=== PATIENT | female | born 1945 | race Caucasian/White ===

== ENCOUNTER 2016-08-06 11:18 | Observation (INO) | payer MEDICARE, OTHER ==
[2016-08-06] MEDS ORDERED: Ketorolac INJ* 30 MG/ML 1 ML VIAL IV ONE (13:58)
--- NOTE | 2016-08-06 14:29 | RAD ---
HISTORY: Left chest, shoulder, and back pain COMPARISONS: July 29, 2013 VIEWS: 2: Frontal dual-energy and lateral views of the chest. FINDINGS: CARDIOMEDIASTINAL SILHOUETTE: The cardiomediastinal silhouette is normal. MARY: The mary are normal. PLEURA: The costophrenic angles are sharp. No pleural abnormalities are noted. LUNG PARENCHYMA: The lungs are clear. ABDOMEN: The upper abdomen is clear. There is no subphrenic gas. BONES AND SOFT TISSUES: No bone or soft tissue abnormalities are noted. OTHER: None. IMPRESSION: NO ACTIVE CARDIOPULMONARY DISEASE.
[2016-08-06 14:48] LABS: Hematocrit 41 % (35-47); Hemoglobin 14.4 g/dl (12.0-16.0); Mean Corpuscular HGB Conc 35 g/dl (31-36); Mean Corpuscular Hemoglobin 31 pg (27-31); Mean Corpuscular Volume 90 fL (80-97); Mean Platelet Volume 9 um3 (7.4-10.4); Red Cell Distribution Width 14 % (10.5-15); White Blood Count 10.1 10^3/ul (3.5-10.8)
[2016-08-06 15:07] LABS: Albumin 4.2 g/dL (3.2-5.2); BUN/Creatinine Ratio 16.9 (8-20); Calcium 9.7 mg/dL (8.6-10.3); EGFR African American 87.9 (>60); EGFR Non-African American 68.4 (>60); Globulin 2.8 g/dL (2-4); Total Bilirubin 0.5 mg/dL (0.2-1.0)
[2016-08-06 15:09] LABS: Potassium 3.7 mmol/L (3.5-5.0); Troponin I 0.02 ng/mL (<0.04)
[2016-08-06] MEDS ORDERED: Ondansetron INJ* 2 MG/ML VIAL IV PRN (15:35)
[2016-08-06] MEDS ORDERED: Zolpidem TAB* 5 MG PO PRN (15:45)
[2016-08-06] MEDS ORDERED: Enoxaparin(*) 40 MG/0.4 ML SYR SUBCUT SCH (16:00)
[2016-08-06] MEDS: Acetaminophen TAB* 325 MG PO PRN ×2 (17:54→23:39)
[2016-08-06] MEDS: amLODIPine TAB* 5 MG PO SCH (17:54)
--- NOTE | 2016-08-06 22:30 | ED ---
Slim Brush Janilya, scribed for Tariq Camejo MD on 08/06/16 at 1431 . HPI Chest Pain - HPI Summary HPI Summary: A 70 y/o [place] [facility] [place] w/ a gradual onset of constant back pain for a few days. Pt states that the pain starts as back pain but slowly migrates to the left arm and intermittently moves to the chest. The back pain is described as pinching pain. The arm pain as achy pain. And the chest pain as jabbing pain. Nothing made the pain better or worse. At this time, the pain is concentrated in the back. When she first came in to the ED, the pain was also in the arm, however, by now it has subsided. Pt also reports mild nausea. Pt denies SOB, diaphoresis. Pt takes diuretic for HTN and sleep meds. PMHx heart murmur. - History of Current Complaint Chief Complaint: EDChestPainROMI Time Seen by Provider: 08/06/16 13:37 Hx Obtained From: Patient Onset/Duration: Started Days Ago, Atraumatic, Still Present Timing: Intermittent Initial Severity: Moderate Current Severity: Moderate Pain Intensity: 5 Pain Scale Used: 0-10 Numeric Chest Pain Radiates: Yes Chest Pain Radiates To:: Back, Arm Character: Other: - jabbing CP Aggravating Factor(s): Nothing Alleviating Factor(s): Nothing Associated Signs and Symptoms: Positive: Chest Pain, Nausea, Back Pain. Negative: Shortness of Breath - Allergy/Home Medications Allergies/Adverse Reactions: Allergies Allergy/AdvReac Type Severity Reaction Status Date / Time No Known Allergies Allergy Verified 08/02/15 11:19 PMH/Surg Hx/FS Hx/Imm Hx Previously Healthy: Yes Cardiovascular History: Reports: Hx Hypertension, Other Cardiovascular Problems/ Disorders - MURMUR Neurological History: Denies: Hx Dementia - Cancer History Hx Chemotherapy: No Hx Radiation Therapy: No - Immunization History Date of Tetanus Vaccine: unknown Date of Influenza Vaccine: no Infectious Disease History: No Infectious Disease History: Denies: Traveled Outside the [place] in Last 30 Days - Family History Known Family History: Positive: Other - alcoholism and cancer Negative: Cardiac Disease - Social History Occupation: Retired Alcohol Use: Daily Alcohol Amount: 6-7 glasses of wine per week Substance Use Type: Reports: None Smoking Status (MU): Former Smoker Review of Systems Negative: Skin Diaphoresis Positive: Chest Pain Negative: Shortness Of Breath Positive: Nausea Positive: Arthralgia - arm and back pain, Myalgia - arm and back pain All Other Systems Reviewed And Are Negative: Yes Physical Exam Triage Information Reviewed: Yes Vital Signs On Initial Exam: Initial Vitals Temp Pulse Resp BP Pulse Ox 98.1 F 95 16 180/80 100 08/06/16 11:25 08/06/16 11:25 08/06/16 11:25 08/06/16 11:25 08/06/16 11:25 Vital Signs Reviewed: Yes Appearance: Positive: Well-Appearing, No Pain Distress Skin: Positive: Warm, Skin Color Reflects Adequate Perfusion, Dry Head/Face: Positive: Normal Head/Face Inspection Eyes: Positive: Normal ENT: Positive: Normal ENT inspection Neck: Positive: Supple, Nontender Respiratory/Lung Sounds: Positive: Clear to Auscultation, Breath Sounds Present Cardiovascular: Positive: RRR Abdomen Description: Positive: Nontender, Soft Bowel Sounds: Positive: Present Musculoskeletal: Positive: Other - Mild to moderate mid-sternal tenderness Neurological: Positive: Normal Psychiatric: Positive: Affect/Mood Appropriate - [place] Coma Scale Coma Scale Total: 15 Diagnostics - Vital Signs Vital Signs Temp Pulse Resp BP Pulse Ox 08/06/16 13:27 98 F 77 16 193/87 99 08/06/16 12:49 98.0 F 81 15 172/79 100 08/06/16 11:25 98.1 F 95 16 180/80 100 - Laboratory Lab Results: Lab Results 08/06/16 08/06/16 08/06/16 Range/Units 14:30 14:30 14:30 WBC 10.1 (3.5-10.8) 10^3/ul RBC 4.60 (4.0-5.4) 10^6/ul Hgb 14.4 (12.0-16.0) g/dl Hct 41 (35-47) % MCV 90 (80-97) fL MCH 31 (27-31) pg MCHC 35 (31-36) g/dl RDW 14 (10.5-15) % Plt Count 279 (150-450) 10^3/ul MPV 9 (7.4-10.4) um3 Neut % (Auto) 77.2 (38-83) % Lymph % (Auto) 15.3 L (25-47) % [place] % (Auto) 3.8 (1-9) % Eos % (Auto) 2.3 (0-6) % Baso % (Auto) 1.4 (0-2) % Absolute Neuts (auto) 7.8 H (1.5-7.7) 10^3/ul Absolute Lymphs (auto) 1.5 (1.0-4.8) 10^3/ul Absolute Monos (auto) 0.4 (0-0.8) 10^3/ul Absolute Eos (auto) 0.2 (0-0.6) 10^3/ul Absolute Basos (auto) 0.1 (0-0.2) 10^3/ul Absolute Nucleated RBC 0 10^3/ul Nucleated RBC % 0 D-Dimer, Quantitative < 200 (Less Than 230) ng/mL Sodium 136 (133-145) mmol/L Potassium 3.7 (3.5-5.0) mmol/L Chloride 104 (101-111) mmol/L Carbon Dioxide 22 (22-32) mmol/L Anion Gap 10 (2-11) mmol/L BUN 14 (6-24) mg/dL Creatinine 0.83 (0.51-0.95) mg/dL Est GFR ( Amer) 87.9 (>60) Est GFR (Non-Af Amer) 68.4 (>60) BUN/Creatinine Ratio 16.9 (8-20) Glucose 105 H (70-100) mg/dL Lactic Acid (0.5-2.0) mmol/L Calcium 9.7 (8.6-10.3) mg/dL Total Bilirubin 0.50 (0.2-1.0) mg/dL AST 20 (13-39) U/L ALT 12 (7-52) U/L Alkaline Phosphatase 49 (34-104) U/L Troponin I 0.02 (<0.04) ng/mL Total Protein 7.0 (6.4-8.9) g/dL Albumin 4.2 (3.2-5.2) g/dL Globulin 2.8 (2-4) g/dL Albumin/Globulin Ratio 1.5 (1-3) // Range/Units 14:30 WBC (3.5-10.8) 10^3/ul RBC (4.0-5.4) 10^6/ul Hgb (12.0-16.0) g/dl Hct (35-47) % MCV (80-97) fL MCH (27-31) pg MCHC (31-36) g/dl RDW (10.5-15) % Plt Count (150-450) 10^3/ul MPV (7.4-10.4) um3 Neut % (Auto) (38-83) % Lymph % (Auto) (25-47) % [place] % (Auto) (1-9) % Eos % (Auto) (0-6) % Baso % (Auto) (0-2) % Absolute Neuts (auto) (1.5-7.7) 10^3/ul Absolute Lymphs (auto) (1.0-4.8) 10^3/ul Absolute Monos (auto) (0-0.8) 10^3/ul Absolute Eos (auto) (0-0.6) 10^3/ul Absolute Basos (auto) (0-0.2) 10^3/ul Absolute Nucleated RBC 10^3/ul Nucleated RBC % D-Dimer, Quantitative (Less Than 230) ng/mL Sodium (133-145) mmol/L Potassium (3.5-5.0) mmol/L Chloride (101-111) mmol/L Carbon Dioxide (22-32) mmol/L Anion Gap (2-11) mmol/L BUN (6-24) mg/dL Creatinine (0.51-0.95) mg/dL Est GFR ( Amer) (>60) Est GFR (Non-Af Amer) (>60) BUN/Creatinine Ratio (8-20) Glucose (70-100) mg/dL Lactic Acid 2.0 (0.5-2.0) mmol/L Calcium (8.6-10.3) mg/dL Total Bilirubin (0.2-1.0) mg/dL AST (13-39) U/L ALT (7-52) U/L Alkaline Phosphatase (34-104) U/L Troponin I (<0.04) ng/mL Total Protein (6.4-8.9) g/dL Albumin (3.2-5.2) g/dL Globulin (2-4) g/dL Albumin/Globulin Ratio (1-3) Result Diagrams: 08/06/16 14:30 08/06/16 14:30 Lab Statement: Any lab studies that have been ordered have been reviewed, and results considered in the medical decision making process. - Radiology CXR Xray Interpretation: No Acute Changes - IMPRESSION: No active cardiopulmonary disease Radiology Interpretation Completed By: Radiologist - EKG 1323 Cardiac Rate: NL - 78 bpm EKG Rhythm: Sinus Rhythm ST Segment: Non-Specific Chest Pain Course/Dx - Diagnoses Provider Diagnoses: Chest pain - Provider Notifications Discussed Care Of Patient With: Dr. George (hospitalist) at 1520: agrees to admit pt upon evaluation. Discharge - Discharge Plan Condition: Stable Disposition: ADMITTED TO [facility] documentation as recorded by the Slim dan Janilya accurately reflects the service I personally performed and the decisions made by Bashir padilla Richard L, MD.
[2016-08-07] MEDS ORDERED: hydrALAZINE IV* 20 MG/ML VIAL IV PRN (00:02)
--- NOTE | 2016-08-07 00:23 | HP ---
ADMISSION HISTORY AND PHYSICAL: DATE OF ADMISSION: 08/06/2016. PRIMARY CARE PROVIDER: Dr. Kaye Hammond. ADMITTING PROVIDER: CL Pizano. SUPERVISING PHYSICIAN: Dr. Franki George* (dictated by CL Pizano). CHIEF COMPLAINT: Chest pain. HISTORY OF PRESENT ILLNESS: This is a 70-year-old female with hypertension who presented to the emergency department with complaints of left-sided chest and shoulder pain. The patient has been having intermittent symptoms for the last day and a half to two days. She states that her pain is somewhat related to her activity. She does not recall any recent trauma or new activity that may have initiated her pain. She continues to have pain both at rest and with exertion. She denies associated shortness of breath, abdominal pain, but does report some mild nausea, which has since resolved. She states that her pain has been migrating from her left chest region into her shoulder and left shoulder blade and occasionally radiates up into her neck. She states that she has not had a history of similar symptoms. She has no known coronary disease. The patient denies any recent illness. She denies associated cough. No vomiting or diarrhea. No recent fevers. No other associated symptoms. PAST MEDICAL HISTORY: Hypertension. PAST SURGICAL HISTORY: Hysterectomy. HOME MEDICATIONS: 1. Chlorthalidone 25 mg p.o. daily. 2. Aspirin 325 mg p.o. daily. 3. Ambien 5 mg p.o. at bedtime as needed for insomnia. FAMILY HISTORY: The patient has a strong family history of colon cancer. Her father had multiple strokes. No known coronary artery disease. SOCIAL HISTORY: The patient lives at home with her . 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 She has less than 37-[id number]-[id number] smoking history quit about 25 years ago. She consumes 1 glass of wine daily. REVIEW OF SYSTEMS: As noted above in HPI, otherwise negative. PHYSICAL EXAMINATION GENERAL: This is a very pleasant 70-year-old female, in no acute distress, lying comfortably on hospital stretcher. She states that she is still having some pain in the left chest region at the time of the exam. VITAL SIGNS: Temperature 98.1 degrees Fahrenheit, pulse 95 beats per minute, respiratory rate 16 per minute, oxygen saturation 100% on room air, and blood pressure 180/80 mmHg. HEENT: Head is normocephalic and atraumatic. Mucous membranes are pink and moist. NECK: Supple. Free of lymphadenopathy with no obvious JVD. RESPIRATORY: Lungs are clear to auscultation without wheezes, crackles or rhonchi. CARDIOVASCULAR: Heart has regular rate and rhythm without murmurs, rubs, or gallops. ABDOMEN: Abdomen is soft and nontender to palpation. EXTREMITIES: No edema appreciated. PSYCH: The patient is alert and appropriately oriented. SKIN: Limited exam shows no concerning rashes or lesions. MUSCULOSKELETAL: The patient has no tenderness to palpation, but some of her pain is reproduced by moving her left shoulder. LABORATORY EVALUATION: CBC shows a white blood cell count of 10,100, hemoglobin of 14.4 g/dL and a platelet count of 279,000. D-dimer is less than 200. Comprehensive metabolic panel is unremarkable. Initial troponin negative at 0.02. IMAGING: Chest x-ray shows no acute process. EKG shows sinus rhythm with Q waves in I and aVL, which is unchanged from a prior EKG almost 10 years ago. ASSESSMENT AND PLAN: This is a 70-year-old female with hypertension who presented to the emergency department with complaints of chest pain that has been waxing and waning over the last 2 days. She was noted to be significantly hypertensive in the emergency department. Initial EKG and troponins are unremarkable. The patient will be admitted to observation status with pending stress test for tomorrow. 1. The patient continues to have chest pain during evaluation, but no changes on EKG. Initial troponin is negative. The patient has associated hypertension. No recent cardiac imaging. We will plan to admit with plans for serial troponins, continuous telemetry monitoring, and nuclear stress testing in the morning. The patient is already on full dose aspirin which will be continued at this time. We will also plant to check a fasting lipid panel in the morning. 2. Hypertension - the patient noted to be hypertensive in the emergency department with systolic pressures between 170 and 190. The patient states that she had a physical exam couple of weeks ago and her blood pressure was down to about 145 systolic at that time. She is treated with chlorthalidone. We will start 5 mg of amlodipine at this time and continue to monitor blood pressure overnight. 3. Code status. The patient is full code. 4. DVT prophylaxis. The patient is moderate risk for deep venous thrombosis and will be placed on Lovenox 40 mg subcu daily. 5. Healthcare proxy is the patient's . DISPOSITION: The patient is being admitted to observation status and anticipated discharge tomorrow. CL PIZANO CC: Dr. Kaye Hammond* [id number]/[facility] #: [id number] GILA
[2016-08-07 06:20] LABS: HDL Cholesterol 62.8 mg/dL
[2016-08-07] MEDS ORDERED: Aspirin EC TAB* 325 MG PO SCH (09:00)
[2016-08-07] MEDS ORDERED: Chlorthalidone TAB* 50 MG PO SCH (09:00)
[2016-08-07] MEDS: amLODIPine TAB* 5 MG PO SCH (11:09)
[2016-08-07 12:18] VITALS: BP 144/70
--- NOTE | 2016-08-08 08:43 | DS ---
DISCHARGE SUMMARY: DATE OF ADMISSION: 08/06/16 DATE OF DISCHARGE: 08/07/16 PRIMARY CARE PROVIDER: Dr. Kaye Hammond. DISCHARGING PROVIDER: CL Pizano. SUPERVISING PHYSICIAN: Dr. Arlene Washington* (dictated by CL Pizano). PRIMARY DISCHARGE DIAGNOSES: 1. Chest pain without evidence of acute coronary syndrome. 2. Hypertension. SECONDARY DISCHARGE DIAGNOSIS: Hyperlipidemia. DISCHARGE MEDICATIONS: 1. Aspirin 325 mg p.o. daily. 2. Atorvastatin 20 mg p.o. daily. 3. Chlorthalidone 25 mg p.o. daily. 4. Ambien 5 mg p.o. at bedtime as needed for insomnia. 5. Amlodipine 5 mg p.o. daily. MEDICATION CHANGES: 1. Start Lipitor. 2. Start amlodipine. HOSPITAL IMAGIN. Chest x-ray shows no acute process. 2. EKG shows sinus rhythm with Q waves in leads 1 and aVL, which is unchanged from prior. 3. Stress echocardiogram is within normal limits. No wall motion changes. She does have a hypertensive response to exercise. HOSPITAL COURSE: This is a very pleasant 70-year-old female with hypertension who presented to the emergency department with complaints of left-sided chest pain radiating to her shoulder and arm. She had been having rather constant pain, but waxing and waning for about 2 days prior to coming to the emergency department. She denied that her symptoms were necessarily affected by activity. She had no history of coronary artery disease, but a long-standing history of hypertension for which she was treated with chlorthalidone. When she reached the emergency department, initial systolic blood pressure was 180 mmHg. EKG showed a sinus rhythm with Q waves in I and aVL, which had been present previously and initial troponin was negative. On exam, some of the patient's pain was reproduced by movement of her shoulder, but not entirely. Based on her age and hypertension, the patient was admitted to observation status for continuous telemetry monitoring, serial troponins, and stress test. Serial troponins remained negative. No changes on telemetry. She underwent a stress echocardiogram and the patient wished to avoid radiation associated with the nuclear stress test. The stress echocardiogram did not show any wall motion changes. She did have a significant hypertensive response to exercise, however. The patient's pain remains subtly present throughout her hospital stay without significant change otherwise. This was thought to most likely be musculoskeletal. DISPOSITION: The patient is being discharged to home with amlodipine as described above. Fasting lipid panel also demonstrated hyperlipidemia, and based on risk factors, recommends treating with moderately dosed statin. Recommend close followup with primary care. CL PIZANO CC: Dr. Kaye Hammond* [id number]/[facility] #: [id number] GILA
== END 2016-08-07 14:13 | disposition home or self-care (01) ==
LOC: ED 11:18 → MEDTELE 15:35
PROVIDERS: ADMIT Internal Medicine; ATTEND Internal Medicine
DX: R07.9 Chest pain, unspecified (principal); I10 Essential (primary) hypertension; E78.5 Hyperlipidemia, unspecified; I51.7 Cardiomegaly; Z79.82 Long term (current) use of aspirin; Z79.899 Other long term (current) drug therapy; Z87.891 Personal history of nicotine dependence
CPT/HCPCS: 36415; 71020; 80053; 80061; 83605; 84484; 85025; 85379; 93005; 96372; 96374; 99283; A9270-GY; G0378; J0360; J1650; J1885

== ENCOUNTER 2018-01-13 07:01 | Emergency (ER) | payer MEDICARE, OTHER ==
--- NOTE | 2018-01-13 07:17 | UC ---
Hand/Wrist HPI - HPI Summary HPI Summary: This patient is a 72 year old F presenting to [facility] [place] with a chief complaint of right thumb swelling for the last 5 days that started near the nail. She had a prior infection in the finger and has been on keflex since 01-11-18. Since then the redness has resolved but swelling began. She states the initial infection began due a cracked cuticle. The patient rates the pain 6/10 in severity. Patient denies fever and foreign body. She is unsure of her last tetanus shot. - History Of Current Complaint Stated Complaint: R THUMB COMPLAINT Time Seen by Provider: 01/13/18 07:06 Hx Obtained From: Patient Onset/Duration: Lasting Days, Still Present Severity Initially: Moderate Severity Currently: Moderate Pain Intensity: 6 Pain Scale Used: 0-10 Numeric Associated Signs And Symptoms: Positive: Swelling. Negative: Redness, Fever, Numbness/Tingling - Allergies/Home Medications Allergies/Adverse Reactions: Allergies Allergy/AdvReac Type Severity Reaction Status Date / Time sulfamethoxazole Allergy Shakes Verified 01/13/18 07:17 [From Bactrim] trimethoprim [From Bactrim] Allergy Shakes Verified 01/13/18 07:17 Home Medications: Home Medications Aspirin [Aspirin Childrens 81 MG] 81 mg PO DAILY 01/13/18 [History Confirmed ] Cephalexin CAP* [Keflex CAP*] 500 mg PO TID 01/13/18 [History Confirmed 01/13/18 ] Fluticasone/Vilanterol [Breo Ellipta 200-25 Mcg INH] 1 puff INH DAILY PRN [History Confirmed 01/13/18] PMH/Surg Hx/FS Hx/Imm Hx Cardiovascular History: Hypertension Other History Of: Negative For: HIV - Surgical History Surgical History: Yes Surgery Procedure, Year, and Place: histo at 44 - Family History Known Family History: Positive: Hypertension, Other - alcoholism and cancer Negative: Cardiac Disease - Social History Alcohol Use: Daily Alcohol Amount: 6-7 glasses of wine per week Substance Use Type: None Smoking Status (MU): Former Smoker Review of Systems All Other Systems Reviewed And Are Negative: Yes Physical Exam - Summary Physical Exam Summary: Appearance: Well appearing, no pain distress Skin: on the right thumb on the ulnar surface of the nail fold there is a pointing abscess. There is no redness in the proximal nail fold Head/face: normal Eyes: EOMI, SARAY ENT: mucous membranes moist Neck: supple, non-tender Respiratory: CTA, breath sounds present Cardiovascular: RRR, pulses symmetrical Abdomen: non-tender, soft Bowel Sounds: present Musculoskeletal: normal, strength/ROM intact Neuro: normal, sensory motor intact, A&Ox3 Triage Information Reviewed: Yes Vital Signs Reviewed: Yes Procedures - Procedure Summary Procedure Summary: Incision and drainage of paronychia: cc of 1% lido was used in the local area of the ulnar side distal right thumb and 11 blade was used to unroofed the abscess, no foreign body came out, and wound culture was taken. A large amount of purulence was drained. It was cleansed with soap and water. Sterile tube gauze dressing applied. Procedure well tolerated. Diagnostics - Radiology thumb xray Xray Interpretation: No Acute Changes Radiology Interpretation Completed By: ED Physician - no foreign body seen. Pending official report., Radiologist Hand/Wrist Course/Dx - Course Course Of Treatment: BP noted and patient advised to f/u with PCP. Abscess I& Ded, x-ray shows no foreign body. Already on antibiotics. - Differential Dx/Diagnosis Provider Diagnoses: HTN, Right thumb paronychia Discharge - Sign-Out/Discharge Documenting (check all that apply): Patient Departure All imaging exams completed and their final reports reviewed: Yes - Discharge Plan Condition: Improved Disposition: HOME Patient Education Materials: Paronychia (ED) Referrals: Kaye Hammond MD [Primary Care Provider] - Additional Instructions: Your blood pressure was elevated during todays visit; please follow up with your primary care provider within a week for further evaluation. Warm water baths 3 times daily. Continue antibiotics. Return if worse, new symptoms, not getting better, or other concerns. - Billing Disposition and Condition Condition: IMPROVED Disposition: Home - Attestation Statements Document Initiated by eDxibestelle: Yes Documenting Scribe: Thomas Christian Provider For Whom Cyndee is Documenting (Include Credential): Louis Caballero MD Scribe Attestation: Thomas Brush scribed for Louis Caballero MD on 01/13/18 at 0926. Scribe Documentation Reviewed: Yes Provider Attestation: The documentation as recorded by the Thomas dan accurately reflects the service I personally performed and the decisions made by me, Louis Caballero MD
[2018-01-13 07:19] VITALS: BP 156/80
[2018-01-13] MEDS ORDERED: Tetan/Diph/Pertus SYR(Tdap)* 0.5 ML SYR(BOOSTRIX) use SYR IM ONE (07:22)
[2018-01-13] MEDS ORDERED: Lidocaine 1% MPF* 2 ML VIAL INJ ONE (07:24)
[2018-01-13] MEDS ORDERED: Lidocaine 1%* 5 ML VIAL ONE (07:30)
--- NOTE | 2018-01-13 08:26 | RAD ---
INDICATION: Right thumb abscess x4 days COMPARISON: None TECHNIQUE: 3 views of the right thumb were obtained. FINDINGS: There is no subcutaneous foreign body overlying the right thumb. The bones are normal alignment. Joint spaces appear maintained. No fracture is seen. IMPRESSION: No radiographically visible subcutaneous foreign body or focal bony abnormality of the right thumb. If the patient's symptoms persist, follow-up imaging is recommended.
--- NOTE | 2018-01-14 15:28 | UC ---
- Progress Note Progress Note: wound 2+ strep 1+ serratia pt on keflex await sensitivity Ljj 01/14/2018 Discharge - Sign-Out/Discharge Documenting (check all that apply): Post-Discharge Follow Up All imaging exams completed and their final reports reviewed: Yes - Discharge Plan Condition: Improved Disposition: HOME Patient Education Materials: Margret (ED) Referrals: Kaye Hammond MD [Primary Care Provider] - Additional Instructions: Your blood pressure was elevated during todays visit; please follow up with your primary care provider within a week for further evaluation. Warm water baths 3 times daily. Continue antibiotics. Return if worse, new symptoms, not getting better, or other concerns. - Billing Disposition and Condition Condition: IMPROVED Disposition: Home
--- NOTE | 2018-01-16 20:29 | UC ---
- Progress Note Progress Note: Wound culture final with resistance to Cefazolin (first gen cephalo) thus likely resistant to keflex. Have pt stop Keflex and start Doxycycline 100mg BID for 1 week Discharge - Sign-Out/Discharge Documenting (check all that apply): Post-Discharge Follow Up All imaging exams completed and their final reports reviewed: Yes - Discharge Plan Condition: Improved Disposition: HOME Prescriptions: DOXYcycline CAP(*) [DOXYcycline 100MG CAP(*)] 100 mg PO BID #14 cap Patient Education Materials: Paronychia (ED) Referrals: Kaye Hammond MD [Primary Care Provider] - Additional Instructions: Your blood pressure was elevated during todays visit; please follow up with your primary care provider within a week for further evaluation. Warm water baths 3 times daily. Continue antibiotics. Return if worse, new symptoms, not getting better, or other concerns. - Billing Disposition and Condition Condition: IMPROVED Disposition: Home
== END 2018-01-13 07:50 | disposition home or self-care (01) ==
LOC: UCEAST 07:01
DX: L03.011 Cellulitis of right finger (principal); Z23 Encounter for immunization; I10 Essential (primary) hypertension; Z88.2 Allergy status to sulfonamides; Z87.891 Personal history of nicotine dependence
CPT/HCPCS: 10060; 87070; 87077; 87186; 87205; 87640; 87641; 90471; 90715; 99211; G0463

== ENCOUNTER 2018-10-06 17:33 | Emergency (ER) | payer MEDICARE, OTHER ==
--- NOTE | 2018-10-06 17:36 | UC ---
Skin Complaint HPI - HPI Summary HPI Summary: 73 yo female presents with bug bite. She tells me that she was gardening a lot yesterday and this afternoon noticed a black bug to the back of her right knee. Removed it without difficulty, but before was able to examine what it was - the wind blew it away. She is worried that it was a tick. She tells me that [place] an area with a lot of ticks and has had lyme disease 3 times in the past. She has no symptoms at this time. - History of Current Complaint Time Seen by Provider: 10/06/18 17:35 Stated Complaint: TICK BITE Hx Obtained From: Patient Onset/Duration: Sudden Onset Current Severity: None - Allergy/Home Medications Allergies/Adverse Reactions: Allergies Allergy/AdvReac Type Severity Reaction Status Date / Time sulfamethoxazole AdvReac Intermediate Shakes Verified 10/06/18 17:41 [From Bactrim] trimethoprim [From Bactrim] AdvReac Intermediate Shakes Verified 10/06/18 17:41 PMH/Surg Hx/FS Hx/Imm Hx Cardiovascular History: Hypertension Respiratory History: COPD Other History Of: Negative For: HIV - Surgical History Surgical History: Yes Surgery Procedure, Year, and Place: histo at 44 - Family History Known Family History: Positive: Hypertension, Other - alcoholism and cancer Negative: Cardiac Disease - Social History Occupation: Retired Lives: With Family Alcohol Use: Daily Alcohol Amount: 6-7 glasses of wine per week Substance Use Type: None Smoking Status (MU): Former Smoker Review of Systems All Other Systems Reviewed And Are Negative: Yes Constitutional: Positive: Negative Skin: Positive: Other - Tick bite Respiratory: Positive: Negative Cardiovascular: Positive: Negative Neurovascular: Positive: Negative Neurological: Positive: Negative Psychological: Positive: Negative Physical Exam - Summary Physical Exam Summary: GENERAL: NAD. WDWN. No pain distress. SKIN: RIGHT POSTERIOR KNEE: there is a 4mm diameter of mild erythema and edema with central 1mm area of superficial skin loss. No streaking, bleeding, or drainage. NECK: Supple. Nontender. No lymphadenopathy. CHEST: No accessory muscle use. Breathing comfortably and in no distress. CV: Pulses intact. Cap refill <2seconds NEURO: Alert. PSYCH: Age appropriate behavior. Triage Information Reviewed: Yes Vital Signs: Vital Signs: Temp Pulse Resp BP Pulse Ox 97.9 F 82 16 180/87 98 10/06/18 17:36 10/06/18 17:36 10/06/18 17:36 10/06/18 17:36 10/06/18 17:36 Vital Signs Reviewed: Yes Course/Dx - Course Course Of Treatment: Unsure if this was a tick that bit her, but given [place] and her history of lyme - she prefers to be treated with prophylactic doxycycline at this time. She was given 200mg in the clinic and advised to monitor for signs/symptoms of lyme and f/u if she develops - Diagnoses Provider Diagnosis: Tick bite Discharge - Sign-Out/Discharge Documenting (check all that apply): Patient Departure All imaging exams completed and their final reports reviewed: No Studies - Discharge Plan Condition: Stable Disposition: HOME Patient Education Materials: Lyme Disease (ED), Tick Bite (ED) Referrals: Kaye Hammond MD [Primary Care Provider] - Additional Instructions: If you develop a fever, shortness of breath, chest pain, new or worsening symptoms - please call your PCP or go to the ED immediately. Your blood pressure was high at todays visit. Please see your primary provider within 4 weeks for recheck and re-evaluation. TICK BITE: You have been bitten by a tick. Once the tick is removed, these "bites" usually cause no problems. Tick fever, tick paralysis, Burchard Spotted fever, and Lyme disease are uncommon -- but you should mention this tick bite to your doctor if you develop unusual symptoms in the next several weeks. If you develop any of the following, please see your physician promptly: (1) Fever, chills, or generalized malaise associated with a headache. (2) A red round area at the site of the bite (or elsewhere) (3) Joint pain, joint swelling or generalized weakness. (4) Redness, swelling, or drainage at the site of the bite. Ticks do not have a typical "head" attached to their body. There are mouth parts sticking out which they use to feed. If there are mouth parts left behind in the wound there is NO increased risk of Lyme infection or disease transmission. If mouth parts remain after tick removal, the best thing to do is apply warm soaks to the area 3-4 times per day to encourage the skin to expel the foreign material. WHEN A TICK IS NOT ENGORGED AND HAS BEEN ON LESS THAN 24 HOURS - THE RISK FOR LYME IS NEGLIGIBLE. YOU CAN REMOVE THE TICK AND OBSERVE THE AREA ON YOUR OWN. - Billing Disposition and Condition Condition: STABLE Disposition: Home
[2018-10-06 17:42] VITALS: BP 180/87
[2018-10-06] MEDS ORDERED: DOXYcycline CAP(*) 100 MG PO ONE (17:50)
== END 2018-10-06 17:59 | disposition home or self-care (01) ==
LOC: UCEAST 17:33
DX: T63.481A Toxic effect of venom of other arthropod, accidental (unintentional), initial encounter (principal); Z88.1 Allergy status to other antibiotic agents; I10 Essential (primary) hypertension; Z87.891 Personal history of nicotine dependence
CPT/HCPCS: 99212; A9270-GY; G0463

== ENCOUNTER 2021-11-09 15:50 | Observation (INO) ==
[2021-11-09 16:49] LABS: Hematocrit 43 % (35-47); Hemoglobin 14.6 g/dL (12.0-16.0); Mean Corpuscular HGB Conc 34 g/dL (31-36); Mean Corpuscular Hemoglobin 31 pg (27-31); Mean Corpuscular Volume 89 fL (80-97); Mean Platelet Volume 8.4 fL (7.4-10.4); Platelet Count 339 10^3/uL (150-450); Red Blood Count 4.75 10^6 /uL (3.70-4.87); Red Cell Distribution Width 13 % (10-15); White Blood Count 12.2 10^3/uL (3.5-10.8)
[2021-11-09 16:59] LABS: INR 1.03 (0.89-1.11)
[2021-11-09 17:14] LABS: Albumin 4.2 g/dL (3.2-5.2); Albumin/Globulin Ratio 1.8 (1-3); Globulin 2.3 g/dL (2-4); Potassium 2.9 mmol/L (3.5-5.0); Total Bilirubin 0.5 mg/dL (0.2-1.0); Total Protein 6.5 g/dL (6.4-8.9); eGFR CKD-EPI 92.3 (>60)
[2021-11-09] MEDS ORDERED: Potassium Chlor 20 meq TAB.ER PO ONE (17:24)
[2021-11-09] MEDS ORDERED: KCL 20 MEQ/100 ML IVPREMIX 20 MEQ/100 ML BAG IV ONE (17:24)
[2021-11-09 17:57] LABS: High Sensitivity Troponin 1 Hr 4 pg/mL (<15)
[2021-11-09 18:39] LABS: ABS Basophils 0.2 10^3/ul (0-0.2); ABS Eosinophils 2.7 10^3/ul (0-0.6); ABS Lymphocytes 1.7 10^3/ul (1.0-4.8); ABS Monocytes 0.7 10^3/ul (0-0.8); Eosinophil % 21.9 %; Lymphocyte % 14.3 %
[2021-11-09 21:28] LABS: Calcium 9.1 mg/dL (8.6-10.3); Potassium 3.2 mmol/L (3.5-5.0); eGFR CKD-EPI 92.7 (>60)
[2021-11-09] MEDS ORDERED: Furosemide 40 mg/4 ml IV VIAL IV SLOW PU ONE (23:51)
[2021-11-09] MEDS ORDERED: Potassium EFFERVES 25 meq TAB PO ONE (23:51)
[2021-11-10] MEDS ORDERED: methylPREDNISolone SOD SUCC 125 mg 2 ML VIAL IV ONE (00:52)
[2021-11-10] MEDS ORDERED: Albuterol 0.5% CONC CONTINUOUS NEB.SOL 5 mg/ml 20 ml BOT INH ONE (00:52)
[2021-11-10 02:10] LABS: Urine Appearance Clear; Urine Color Yellow; Urine Specific Gravity 1.015 (1.005-1.030); Urine Urobilinogen 0.2 (Negative) (Negative)
[2021-11-10 02:11] LABS: Urine Bilirubin Negative (Negative); Urine Blood Negative (Negative); Urine Glucose Negative (Negative); Urine Ketones Negative (Negative); Urine Nitrite Negative (Negative); Urine Protein Negative (Negative)
[2021-11-10 02:18] LABS: Urine Bacteria Absent (Absent); Urine Red Blood Cell Trace(0-2/hpf) (Absent); Urine White Blood Cell Trace(0-5/hpf) (Absent)
[2021-11-10] MEDS ORDERED: Ondansetron ODT 4 mg TAB 4 MG TAB SL PRN (03:10)
[2021-11-10 03:26] LABS: Magnesium 1.8 mg/dL (1.9-2.7)
[2021-11-10] MEDS: Albuterol/Ipratropium NEB.SOL (2.5/0.5 MG) 3 ML NEB.SOLN INH SCH ×2 (03:38→07:15)
[2021-11-10] MEDS ORDERED: Magnesium Sulfate 2 gm BAG 2 GM/50 ML BAG IVPB ONE (03:45)
[2021-11-10] MEDS ORDERED: NS 0.9% 500 ml BAG 500 ML IV SCH (04:00)
[2021-11-10 05:25] LABS: ABS Eosinophils 0.1 10^3/ul (0-0.6); ABS Lymphocytes 0.6 10^3/ul (1.0-4.8); ABS Monocytes 0.2 10^3/ul (0-0.8); ABS Neutrophils 13.3 10^3/ul (1.5-7.7); Eosinophil % 0.8 %; Hematocrit 42 % (35-47); Hemoglobin 14.6 g/dL (12.0-16.0); Lymphocyte % 4.5 %; Mean Corpuscular HGB Conc 34 g/dL (31-36); Mean Corpuscular Hemoglobin 31 pg (27-31); Mean Corpuscular Volume 90 fL (80-97); Mean Platelet Volume 8.6 fL (7.4-10.4); Platelet Count 330 10^3/uL (150-450); Red Blood Count 4.68 10^6 /uL (3.70-4.87); Red Cell Distribution Width 13 % (10-15); White Blood Count 14.3 10^3/uL (3.5-10.8)
[2021-11-10 05:55] LABS: Calcium 9.5 mg/dL (8.6-10.3); Magnesium 1.6 mg/dL (1.9-2.7); Potassium 2.8 mmol/L (3.5-5.0); eGFR CKD-EPI 66.2 (>60)
[2021-11-10] MEDS ORDERED: Azithromycin 500 mg/250 ml NS 500 MG/250 ML BAG IVPB ONE (06:30)
[2021-11-10] MEDS ORDERED: Potassium Chlor 20 meq TAB.ER PO ONE (06:30)
[2021-11-10] MEDS ORDERED: Magnesium Sulfate IV 3 GM in NS 0.9% 100 ml BAG 100 ML IVPB ONE (06:32)
[2021-11-10] MEDS ORDERED: Magnesium Sulfate 2 GM IV (Premix) IVPB ONE (07:15)
[2021-11-10] MEDS ORDERED: Magnesium Sulfate 1 GM IV 1 GM/100 ML BAG IV ONE (07:15)
[2021-11-10] MEDS: KCL 20 MEQ/100 ML IVPREMIX 20 MEQ/100 ML BAG IV SCH ×2 (07:18→09:59)
[2021-11-10] MEDS: Enoxaparin 40 MG/0.4 ML SYR SUBCUT SCH (07:35)
[2021-11-10] MEDS: Mometasone/Formoter 100/5 MDI INH SCH ×2 (08:43→20:26)
[2021-11-10] MEDS ORDERED: Albuterol/Ipratropium NEB.SOL (2.5/0.5 MG) 3 ML NEB.SOLN INH PRN (10:33)
[2021-11-10] MEDS ORDERED: Hyaluronidase HUMAN 15 UNIT in Sodium Chloride 0.9% 0.9 ML INTRADERM ONE (11:46)
[2021-11-10 14:16] LABS: Calcium 8.8 mg/dL (8.6-10.3); Magnesium 2.8 mg/dL (1.9-2.7); Potassium 4.1 mmol/L (3.5-5.0); eGFR CKD-EPI 77.3 (>60)
[2021-11-11 06:11] LABS: CO2 Carbon Dioxide 21 mmol/L (22-32); Calcium 9.2 mg/dL (8.6-10.3); Chloride 97 mmol/L (101-111); Sodium 130 mmol/L (135-145)
[2021-11-11 06:16] LABS: Anion Gap 12 mmol/L (2-11)
[2021-11-11 06:17] LABS: Blood Urea Nitrogen 12 mg/dL (6-24); Glucose 91 mg/dL (70-100)
[2021-11-11 06:45] LABS: Hematocrit 40 % (35-47); Hemoglobin 13.4 g/dL (12.0-16.0); Mean Corpuscular HGB Conc 34 g/dL (31-36); Mean Corpuscular Hemoglobin 31 pg (27-31); Mean Corpuscular Volume 91 fL (80-97); Mean Platelet Volume 8.5 fL (7.4-10.4); Platelet Count 340 10^3/uL (150-450); Red Blood Count 4.34 10^6 /uL (3.70-4.87); Red Cell Distribution Width 14 % (10-15); White Blood Count 29.8 10^3/uL (3.5-10.8)
[2021-11-11 06:48] LABS: ABS Basophils 0.1 10^3/ul (0-0.2); ABS Lymphocytes 1.6 10^3/ul (1.0-4.8); ABS Monocytes 1.1 10^3/ul (0-0.8); ABS Neutrophils 27.1 10^3/ul (1.5-7.7); Eosinophil % 0.1 %; Lymphocyte % 5.3 %
[2021-11-11] MEDS ORDERED: Polyethylene Glycol 3350 17 GM PACKET PO PRN (06:50)
[2021-11-11 07:17] LABS: Magnesium 2.2 mg/dL (1.9-2.7); Potassium Redraw 4.7 mmol/L (3.5-5.0)
[2021-11-11] MEDS: Mometasone/Formoter 100/5 MDI INH SCH ×2 (08:24→20:07)
[2021-11-11] MEDS: Enoxaparin 40 MG/0.4 ML SYR SUBCUT SCH ×3 (09:35→14:59)
[2021-11-12 07:04] LABS: ABS Eosinophils 0.1 10^3/ul (0-0.6); ABS Lymphocytes 2.5 10^3/ul (1.0-4.8); ABS Monocytes 0.6 10^3/ul (0-0.8); ABS Neutrophils 15.7 10^3/ul (1.5-7.7); Eosinophil % 0.4 %; Hematocrit 43 % (35-47); Hemoglobin 14.6 g/dL (12.0-16.0); Lymphocyte % 13.1 %; Mean Corpuscular HGB Conc 34 g/dL (31-36); Mean Corpuscular Hemoglobin 31 pg (27-31); Mean Corpuscular Volume 92 fL (80-97); Mean Platelet Volume 8.9 fL (7.4-10.4); Platelet Count 304 10^3/uL (150-450); Red Blood Count 4.65 10^6 /uL (3.70-4.87); Red Cell Distribution Width 13 % (10-15); White Blood Count 18.9 10^3/uL (3.5-10.8)
[2021-11-12 07:18] LABS: Calcium 9.8 mg/dL (8.6-10.3); Potassium 4.1 mmol/L (3.5-5.0)
[2021-11-12 07:23] LABS: eGFR CKD-EPI 86.2 (>60)
[2021-11-12] MEDS: Mometasone/Formoter 100/5 MDI INH SCH (07:48)
[2021-11-12] MEDS: Enoxaparin 40 MG/0.4 ML SYR SUBCUT SCH (10:06)
[2021-11-12 12:17] VITALS: BP 118/53
== END 2021-11-12 14:20 | disposition home or self-care (01) ==
LOC: EDHOLD 15:50 → ED 15:50 → SUATTDRO 11-10 01:13 → MEDTELE 11-10 02:32
PROVIDERS: ADMIT Internal Medicine; ATTEND Internal Medicine

== ENCOUNTER 2022-07-08 08:51 | Inpatient (IN) ==
[2022-07-08 10:07] LABS: ABS Basophils 0.1 10^3/ul (0-0.2); ABS Lymphocytes 1.3 10^3/ul (1.0-4.8); ABS Monocytes 0.6 10^3/ul (0-0.8); ABS Neutrophils 7.9 10^3/ul (1.5-7.7); Eosinophil % 17.1 %; Hematocrit 44 % (35-47); Hemoglobin 14.6 g/dL (12.0-16.0); Lymphocyte % 10.8 %; Mean Corpuscular HGB Conc 33 g/dL (31-36); Mean Corpuscular Hemoglobin 31 pg (27-31); Mean Corpuscular Volume 92 fL (80-97); Mean Platelet Volume 8.2 fL (7.4-10.4); Platelet Count 323 10^3/uL (150-450); Red Blood Count 4.74 10^6 /uL (3.70-4.87); Red Cell Distribution Width 14 % (10-15); White Blood Count 11.9 10^3/uL (3.5-10.8)
[2022-07-08 10:17] LABS: INR 1.06 (0.88-1.18)
[2022-07-08 10:53] LABS: Albumin 4.1 g/dL (3.2-5.2); Albumin/Globulin Ratio 1.6 (1-3); Calcium 10.1 mg/dL (8.6-10.3); Creatinine, Serum 0.93 mg/dL (0.51-0.95); Globulin 2.5 g/dL (2-4); Potassium 3.9 mmol/L (3.5-5.0); Total Bilirubin 0.8 mg/dL (0.2-1.0); Total Protein 6.6 g/dL (6.4-8.9); eGFR CKD-EPI 64.5 (>60)
[2022-07-08 11:45] LABS: High Sensitivity Troponin 1 Hr 3 pg/mL (<15)
[2022-07-08] MEDS ORDERED: Albuterol/Ipratropium NEB.SOL (2.5/0.5 MG) 3 ML NEB.SOLN INH ONE ×2 (14:39→18:19)
[2022-07-08] MEDS ORDERED: Acetylcysteine INHALATION SOL 200 MG/ML NEB.SOLN 10 ML INH ONE (14:40)
[2022-07-08] MEDS ORDERED: methylPREDNISolone SOD SUCC 125 mg 2 ML VIAL IV ONE (14:40)
[2022-07-08] MEDS ORDERED: Magnesium Sulfate 2 gm BAG 2 GM/50 ML BAG IVPB ONE (14:41)
[2022-07-08] MEDS ORDERED: Lorazepam PYXIS KEY PRN (14:45)
[2022-07-08] MEDS ORDERED: LORazepam 2 mg VIAL 1 ml IV PUSH ONE (14:45)
[2022-07-08] MEDS ORDERED: NS 0.9% 1000 ml BAG 1,000 ML IV ONE (14:45)
[2022-07-08] MEDS ORDERED: Azithromycin 500 mg/250 ml NS 500 MG/250 ML BAG IVPB ONE (15:11)
[2022-07-08] MEDS ORDERED: cefTRIAXone 1 gm/50 mL D5W 1 GM/50 ML BAG IV ONE (15:11)
[2022-07-08] MEDS ORDERED: Saline NASAL DROPS 0.65% BTL BOTH NARES ONE (21:30)
[2022-07-08] MEDS ORDERED: Benzocaine/Menthol LOZ PO PRN (21:48)
[2022-07-08] MEDS ORDERED: Benzocaine (plain) Lozenge 15 MG PO PRN (23:00)
[2022-07-08] MEDS ORDERED: Albuterol 0.5% CONC CONTINUOUS NEB.SOL 5 mg/ml 20 ml BOT INH SCH (23:00)
[2022-07-08] MEDS: Albuterol 2.5mg/3 ml (0.083%) NEB.SOLN INH SCH (23:40)
[2022-07-08] MEDS ORDERED: Enoxaparin 40 MG/0.4 ML SYR SUBCUT SCH (23:45)
[2022-07-09] MEDS: methylPREDNISolone SOD SUCC 40 mg/ml 1 ml VIAL IV SCH ×2 (00:17→12:57)
[2022-07-09 01:19] LABS: C Reactive Protein 6.43 mg/L (<8.01)
[2022-07-09] MEDS: Albuterol 2.5mg/3 ml (0.083%) NEB.SOLN INH SCH ×3 (03:13→11:39)
[2022-07-09] MEDS ORDERED: Mometasone/Formoter 100/5 MDI INH SCH (07:00)
[2022-07-09] MEDS ORDERED: Albuterol 2.5mg/3 ml (0.083%) NEB.SOLN INH PRN (11:46)
[2022-07-09] MEDS ORDERED: Albuterol HFA INHALER 8 gm MDI INH PRN (11:47)
[2022-07-09 15:43] VITALS: BP 166/81
== END 2022-07-09 15:45 | disposition home or self-care (01) | DRG 202 ==
LOC: ED 08:51 → EDHOLD 20:20
PROVIDERS: ADMIT Hospitalist; ATTEND Hospitalist

== ENCOUNTER 2022-10-05 07:40 | Observation (INO) ==
[2022-10-05] MEDS ORDERED: Magnesium Sulfate 2 gm BAG 2 GM/50 ML BAG IVPB ONE (07:45)
[2022-10-05] MEDS ORDERED: Dexamethasone IV 4 MG/ML VIAL 1 ml VIAL IV SLOW PU ONE (07:45)
[2022-10-05] MEDS ORDERED: Lactated Ringers 1000 ml BAG 1,000 ML IV ONE (07:45)
[2022-10-05] MEDS ORDERED: Albuterol/Ipratropium NEB.SOL (2.5/0.5 MG) 3 ML NEB.SOLN ONE (07:57)
[2022-10-05] MEDS: Albuterol/Ipratropium NEB.SOL (2.5/0.5 MG) 3 ML NEB.SOLN INH SCH (08:05)
[2022-10-05 08:45] LABS: ABS Basophils 0.2 10^3/uL (0.0-0.1); ABS Eosinophils 1.3 10^3/uL (0.0-0.5); ABS Lymphocytes 2.7 10^3/uL (1.0-4.8); ABS Monocytes 0.7 10^3/uL (0.0-0.9); ABS Neutrophils 6.6 10^3/uL (1.5-7.6); ABS Nucleated RBC 0.01 10^3/ul; Eosinophil % 11.2 %; Hematocrit 41.1 % (35-45); Hemoglobin 14.2 g/dL (11.5-14.3); Lymphocyte % 23.7 %; Mean Corpuscular Hgb Conc 34.5 g/dL (31-36); Mean Corpuscular Volume 92.6 fL (80-97); Mean Platelet Volume 8.5 fL (7.5-11.2); Nucleated Red Blood Cells % 0.1 /100 WBC (0.0-0.4); Platelet Count 308 10^3/uL (150-450); Red Blood Count 4.44 10^6/uL (3.63-4.92); Red Cell Distribution Width 14.4 % (12-17); White Blood Count 11.5 10^3/uL (3.8-11.8)
[2022-10-05 08:46] LABS: Venous Bicarbonate HCO3 25.1 mmol/L (24-28)
[2022-10-05 08:54] LABS: Activated Partial Thrombo Time 31.2 seconds (26.0-38.0); INR 1.05 (0.88-1.18)
[2022-10-05 09:04] LABS: Albumin 4.2 g/dL (3.2-5.2); Albumin/Globulin Ratio 1.6 (1-3); Calcium 9.7 mg/dL (8.6-10.3); Creatinine, Serum 1.02 mg/dL (0.51-0.95); Globulin 2.6 g/dL (2-4); Potassium 3.3 mmol/L (3.5-5.0); Total Bilirubin 0.6 mg/dL (0.2-1.0); Total Protein 6.8 g/dL (6.4-8.9); eGFR CKD-EPI 57.4 (>60)
[2022-10-05 10:20] LABS: High Sensitivity Troponin 1 Hr 3 pg/mL (<15)
[2022-10-05] MEDS ORDERED: Potassium Chlor 20 meq TAB.ER PO ONE (11:46)
[2022-10-05] MEDS ORDERED: Senna TAB 8.6 mg TAB PO PRN (13:45)
[2022-10-05] MEDS ORDERED: Polyethylene Glycol 3350 17 GM PACKET PO PRN (13:45)
[2022-10-05] MEDS ORDERED: Ondansetron 4 mg VIAL 2 MG/ML 2 ml VIAL IV PRN (13:45)
[2022-10-05] MEDS ORDERED: Albuterol/Ipratropium NEB.SOL (2.5/0.5 MG) 3 ML NEB.SOLN INH SCH (15:00)
[2022-10-05] MEDS: Enoxaparin 40 MG/0.4 ML SYR SUBCUT SCH (15:48)
[2022-10-05] MEDS ORDERED: NF:Fluticasone/Vilanterol MDI(NF) 100/25 MDI INH SCH (16:00)
[2022-10-05] MEDS: SPIRIVA Respimat (tiotropium) 2.5 mcg/inh Inhaler INH SCH (16:23)
[2022-10-05] MEDS ORDERED: Albuterol HFA INHALER 8 gm MDI INH SCH (19:00)
[2022-10-05] MEDS: Mometasone/Formoter 100/5 MDI INH SCH (19:13)
[2022-10-06] MEDS: Albuterol HFA INHALER 8 gm MDI INH SCH ×3 (00:58→13:35)
[2022-10-06 05:52] LABS: ABS Eosinophils 0.1 10^3/uL (0.0-0.5); ABS Lymphocytes 1.1 10^3/uL (1.0-4.8); ABS Monocytes 0.8 10^3/uL (0.0-0.9); ABS Neutrophils 10.4 10^3/uL (1.5-7.6); ABS Nucleated RBC 0.01 10^3/ul; Eosinophil % 0.5 %; Hematocrit 36.7 % (35-45); Hemoglobin 12.5 g/dL (11.5-14.3); Lymphocyte % 9.2 %; Mean Corpuscular Hemoglobin 31.1 pg (27-33); Mean Corpuscular Volume 91.6 fL (80-97); Mean Platelet Volume 8.6 fL (7.5-11.2); Nucleated Red Blood Cells % 0.1 /100 WBC (0.0-0.4); Platelet Count 288 10^3/uL (150-450); Red Blood Count 4.01 10^6/uL (3.63-4.92); Red Cell Distribution Width 14.1 % (12-17); White Blood Count 12.5 10^3/uL (3.8-11.8)
[2022-10-06 06:09] LABS: Creatinine, Serum 0.81 mg/dL (0.51-0.95); Magnesium 2.2 mg/dL (1.9-2.7); Potassium 4.6 mmol/L (3.5-5.0); eGFR CKD-EPI 75.7 (>60)
[2022-10-06] MEDS: Mometasone/Formoter 100/5 MDI INH SCH (07:46)
[2022-10-06] MEDS: SPIRIVA Respimat (tiotropium) 2.5 mcg/inh Inhaler INH SCH (07:48)
[2022-10-06 10:10] VITALS: BP 143/77
[2022-10-06] MEDS: Enoxaparin 40 MG/0.4 ML SYR SUBCUT SCH (15:10)
== END 2022-10-06 15:05 | disposition home or self-care (01) ==
LOC: ED 07:40 → EDHOLD 07:40 → MED 15:09
PROVIDERS: ADMIT Internal Medicine; ATTEND Internal Medicine